=== PATIENT | female | born 1960 | race Caucasian/White ===

== ENCOUNTER 2020-05-08 14:21 | Inpatient (IN) | payer OTHER ==
--- NOTE | 2020-05-08 15:02 | CR ---
EXAMINATION: Pelvis 1V SEX: Female AGE: 59 years CLINICAL HISTORY: 59-year-old female (nonweight bearing) injured in fall off horse. INTERPRETATION: Rotated AP pelvic film unremarkable. 1. Symmetric spacing normal-appearing hip joints. No dislocation. 2. Homogeneously bone mineral density for age and gender. 3. No fractures of mid/lower pelvis or proximal femurs. 4. No foreign bodies.
[2020-05-08] MEDS ORDERED: Ondansetron 4 MG/2 ML SDV IVPUSH ONE (15:30)
[2020-05-08] MEDS ORDERED: Morphine 2 MG/ML SYRINGE IVPUSH ONE ×2 (15:30→17:45)
--- NOTE | 2020-05-08 15:37 | EDM.PDOC ---
ED HPI GENERAL MEDICAL PROBLEM - General Chief Complaint: Lower Extremity Injury/Pain Stated Complaint: unknown Time Seen by Provider: 05/08/20 15:20 Source of Information: Reports: Patient History Limitations: Reports: No Limitations - History of Present Illness INITIAL COMMENTS - FREE TEXT/NARRATIVE: This 59 yo female patient reports to the ED due to a fall from a horse. The patient reports pain in her left hip and lower back. The patient has not been able to move her left leg since time of injury without increased pain. The patient reports she has gotten nauseated in the past with pain medication. Onset: Today Duration: Minutes: Location: Reports: Back, Pelvis, Lower Extremity, Left Quality: Reports: Ache Severity: Moderate Improves with: Reports: None Worsens with: Reports: None Context: Reports: Trauma Associated Symptoms: Reports: No Other Symptoms left hip Pain Score (Numeric/FACES): 10 - Related Data Allergies Allergy/AdvReac Type Severity Reaction Status Date / Time No Known Allergies Allergy Verified 05/08/20 15:12 Home Meds: Home Meds . 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 ED EXAM, GENERAL - Physical Exam Exam: See Below Exam Limited By: No Limitations General Appearance: Alert, WD/WN, Moderate Distress Eye Exam: Bilateral Eye: EOMI, Normal Inspection, PERRL Ears: Normal External Exam, Normal Canal, Hearing Grossly Normal, Normal TMs Nose: Normal Inspection, Normal Mucosa, No Blood Throat/Mouth: Normal Inspection, Normal Lips, Normal Teeth, Normal Gums, Normal Oropharynx, Normal Voice, No Airway Compromise Head: Atraumatic, Normocephalic Neck: Normal Inspection, Supple, Non-Tender, Full Range of Motion Respiratory/Chest: No Respiratory Distress, Lungs Clear, Normal Breath Sounds, No Accessory Muscle Use, Chest Non-Tender Cardiovascular: Normal Peripheral Pulses, Regular Rate, Rhythm, No Edema, No Gallop, No JVD, No Murmur, No Rub GI/Abdominal: Normal Bowel Sounds, Soft, Non-Tender, No Organomegaly, No Distention, No Abnormal Bruit, No Mass (Female) Exam: Deferred Rectal (Female) Exam: Deferred Back Exam: Paraspinal Tenderness (low back/sacral ), Vertebral Tenderness (low back and sacral ) Extremities: Leg Pain Neurological: Alert, Oriented, CN II-XII Intact, Normal Cognition, Normal Gait, Normal Reflexes, No Motor/Sensory Deficits Psychiatric: Normal Affect, Normal Mood Skin Exam: Warm, Dry, Intact, Normal Color, No Rash Lymphatic: No Adenopathy Course - Vital Signs Last Recorded V/S: Last Vital Signs Temp 37.1 C 05/08/20 14:31 Pulse 88 05/08/20 14:31 Resp 20 05/08/20 14:31 BP 140/79 05/08/20 14:31 Pulse Ox 98 05/08/20 14:31 - Orders/Labs/Meds Orders: Active Orders 24 hr Category Date Time Status Admission Diagnosis [ADT] Stat ADT 05/08/20 16:57 Ordered Admission Status [Patient Status] [ADT] Routine ADT 05/08/20 16:57 Ordered Meds: Medications Discontinued Medications Generic Name Dose Route Start Last Admin Trade Name Freq PRN Reason Stop Dose Admin Morphine Sulfate 2 mg 05/08/20 15:30 05/08/20 15:42 Morphine IVPUSH 05/08/20 15:31 2 mg ONETIME ONE Administration Ondansetron HCl 4 mg 05/08/20 15:30 05/08/20 15:42 Zofran IVPUSH 05/08/20 15:31 4 mg ONETIME ONE Administration - Re-Assessments/Exams Free Text/Narrative Re-Assessment/Exam: 05/08/20 16:[address] Mata (Orthopedics with [facility] in [place]) resulted in recommendation for the patient to be toe touch weigh bearing for 6 weeks. The patient can either follow-up with ortho in [place] or visit one of the orthopedic specialists that comes to [place]. Departure - Departure Time of Disposition: 17:01 Disposition: Refer to Observation Condition: Fair Clinical Impression: Sacral fracture, closed Qualifiers: Encounter type: initial encounter Zone of sacrum fracture: unspecified portion of sacrum Qualified Code(s): S32.10XA - Unspecified fracture of sacrum, initial encounter for closed fracture - Discharge Information *PRESCRIPTION DRUG MONITORING PROGRAM REVIEWED*: Not Applicable *COPY OF PRESCRIPTION DRUG MONITORING REPORT IN PATIENT BERNABE: Not Applicable Care Plan Goals: Discussed the patient's history, examination, CT results and consult recommendations from Dr. Mata ([facility]) with Dr. Moya. Dr. Moya accepted the patient for continued evaluation and management as an observation patient at [facility] in [place]. Sepsis Event Note (ED) - Evaluation Sepsis Screening Result: No Definite Risk - Focused Exam Vital Signs: Vital Signs Temp Pulse Resp BP Pulse Ox 05/08/20 14:31 37.1 C 88 20 140/79 98 - My Orders Last 24 Hours: My Active Orders 05/08/20 16:57 Admission Diagnosis [ADT] Stat Admission Status [Patient Status] [ADT] Routine - Assessment/Plan Last 24 Hours: My Active Orders 05/08/20 16:57 Admission Diagnosis [ADT] Stat Admission Status [Patient Status] [ADT] Routine
--- NOTE | 2020-05-08 16:21 | CT ---
PROCEDURE INFORMATION: Exam: CT Lumbar Spine Without Contrast Exam date and time: 05/08/2020 3:54 PM Age: 59 years old Clinical indication: Injury or trauma; Fall; Blunt trauma (contusions or hematomas); Injury date: 05/08/20; Injury details: Fell trying to get on a horse; Additional info: Low back/sacral pain TECHNIQUE: Imaging protocol: Computed tomography images of the lumbar spine without contrast. Radiation optimization: All CT scans at this facility use at least one of these dose optimization techniques: automated exposure control; mA and/or kV adjustment per patient size (includes targeted exams where dose is matched to clinical indication); or iterative reconstruction. COMPARISON: No relevant prior studies available. FINDINGS: Vertebrae: Comminuted nondisplaced fracture of the left sacral wing. Normal alignment. L1-L2: No significant disc protrusion. No severe spinal canal stenosis. No significant neural foraminal narrowing. L2-L3: No significant disc protrusion. No spinal canal stenosis. No neural foraminal narrowing. L3-L4: No significant disc protrusion. No severe spinal canal stenosis. No significant neural foraminal narrowing. L4-L5: No significant disc protrusion. No severe spinal canal stenosis. No significant neural foraminal narrowing. L5-S1: No significant disc protrusion. No severe spinal canal stenosis. No significant neural foraminal narrowing. Soft tissues: Unremarkable. IMPRESSION: Nondisplaced comminuted fracture of the left sacral wing. No other bony injury. No soft tissue findings.
[2020-05-08] MEDS ORDERED: Acetaminophen 325 MG Tab PO PRN (18:10)
--- NOTE | 2020-05-08 18:19 | PCM.HP ---
H&P History of Present Illness - General Date of Service: 05/08/20 Admit Problem/Dx: Admission Diagnosis/Problem Admission Diagnosis/Problem Pain management Source of Information: Patient History Limitations: Reports: No Limitations - History of Present Illness Initial Comments - Free Text/Narative: Kate is a 59-year-old female with no significant past medical history who presented to the ED for evaluation of left hip and lower back pain following a fall. Per patient she was climbing onto a horse for a horse right when she fell off onto the hard concrete it floor. She denies any prodromal symptoms. She sustained severe pain to the left hip and lower back. She is unable to bear weight. Pain is sharp, 10/10, nonradiating, aggravated with movement and relieved with rest. She denies any other symptoms. She denies urinary or fecal incontinence. She has no fever or chills. No diarrhea. In the ED vitals were unremarkable. X-ray of the pelvis was unremarkable. CT pelvis revealed comminuted nondisplaced fracture of the left sacral wing. The ED provider orthopedic surgeon at [facility] was consulted and indicated patient is not a surgical candidate. He recommended pain management and PT/OT. Patient received IV analgesics in the ED. Admission was requested for further management. Onset of Symptoms: Reports: Today Duration of Symptoms: Reports: Hour(s): Location: Reports: Back, Pelvis Quality: Reports: Stabbing Severity: Severe Improves with: Reports: Rest Worsens with: Reports: Immobilization Associated Symptoms: Reports: No Other Symptoms left hip Pain Score (Numeric/FACES): 10 - Related Data Allergies/Adverse Reactions: Allergies Allergy/AdvReac Type Severity Reaction Status Date / Time No Known Allergies Allergy Verified 05/08/20 15:12 Home Medications: Home Meds . 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 General: Reports: No Symptoms HEENT: Reports: No Symptoms Pulmonary: Reports: No Symptoms Cardiovascular: Reports: No Symptoms Gastrointestinal: Reports: No Symptoms Genitourinary: Reports: No Symptoms Musculoskeletal: Reports: No Symptoms Skin: Reports: No Symptoms Psychiatric: Reports: No Symptoms Neurological: Reports: No Symptoms Hematologic/Lymphatic: Reports: No Symptoms Immunologic: Reports: No Symptoms Exam - Exam Exam: See Below - Vital Signs Vital Signs: Last Vital Signs Temp 98.7 F 05/08/20 14:31 Pulse 88 05/08/20 14:31 Resp 20 05/08/20 14:31 BP 140/79 05/08/20 14:31 Pulse Ox 98 05/08/20 14:31 Weight: 145 lb - Exam General: Alert, Oriented, 4 HEENT: PERRLA, Hearing Intact, Mucosa Moist & [place], Nares Patent, Normal Nasal Septum, Posterior Pharynx Clear, Conjunctiva Clear, EOMI, EACs Clear, TMs Clear Neck: Supple, Trachea Midline, 2 Lungs: Clear to Auscultation, Normal Respiratory Effort Cardiovascular: Regular Rate, Regular Rhythm GI/Abdominal Exam: Normal Bowel Sounds, Soft, Non-Tender, No Organomegaly, No Distention, No Abnormal Bruit, No Mass, Pelvis Stable (Female) Exam: Normal External Exam, Normal Speculum Exam, Normal Bimanual Exam Rectal (Female) Exam: Normal Exam, Normal Rectal Tone Back Exam: Normal Inspection, Full Range of Motion, NT Extremities: Normal Inspection, Normal Range of Motion, Non-Tender, No Pedal Edema, Normal Capillary Refill Skin: Warm, Dry, Intact Neurological: Cranial Nerves Intact, Reflexes Equal Bilateral Neuro Extensive - Mental Status: Alert, Oriented x3, Normal Mood/Affect, Normal Cognition Neuro Extensive - Motor, Sensory, Reflexes: CN II-XII Intact, Normal Gait, Normal Reflexes Psychiatric: Alert, Normal Affect, Normal Mood - Patient Data Result Diagrams: 05/08/20 18:30 05/08/20 18:30 - Problem List (1) Status post fall SNOMED Code(s): 341830705 ICD Code: Z91.81 - HISTORY OF FALLING Status: Acute Current Visit: Yes Problem List Initiated/Reviewed/Updated: Yes Orders Last 24hrs: Active Orders 24 hr Category Date Time Status Admission Diagnosis [ADT] Stat ADT 05/08/20 16:57 Ordered Admission Status [Patient Status] [ADT] Routine ADT 05/08/20 16:57 Active Ambulate [RC] ASDIRECTED Care 05/08/20 18:10 Ordered Notify Provider Vital Signs [RC] ASDIRECTED Care 05/08/20 18:11 Ordered Oxygen Therapy [RC] PRN Care 05/08/20 18:10 Ordered VTE/DVT Education [RC] PER UNIT ROUTINE Care 05/08/20 18:10 Ordered Vital Signs [RC] Q4H Care 05/08/20 18:10 Ordered PT Evaluation and Treatment [CONS] Routine Cons 05/08/20 18:10 Ordered Regular Diet [DIET] Diet 05/08/20 Dinner Ordered BASIC METABOLIC PANEL,BMP [CHEM] Routine Lab 05/08/20 18:10 Ordered CBC WITH AUTO DIFF [HEME] Routine Lab 05/08/20 18:10 Ordered CORONAVIRUS COVID-19 RAPID [MOLEC] Stat Lab 05/08/20 17:05 Received Acetaminophen [TylenoL] Med 05/08/20 18:10 Ordered 650 mg PO Q4H PRN Baclofen [Lioresal] Med 05/08/20 18:30 Ordered 10 mg PO TID Heparin Sodium Med 05/08/20 21:00 Ordered 5,000 units SUBCUT Q12HR Ondansetron [Zofran] Med 05/08/20 18:10 Ordered 4 mg IVPUSH Q6H PRN fentaNYL [Sublimaze] Med 05/08/20 18:14 Ordered 50 mcg IVPUSH Q2H PRN oxyCODONE Med 05/08/20 18:10 Ordered 10 mg PO Q6H PRN Resuscitation Status Routine Resus Stat 05/08/20 18:10 Ordered Assessment/Plan Comment:: #Severe left hip and lower back pain status post mechanical fall #Comminuted nondisplaced left sacral wing fracture following above Admit to medical floor Pain management with oxycodone 10 mg every 6 hours as needed IV fentanyl 50 mg every 2 hours for breakthrough pain Physical therapy and Occupational Therapy Fall precautions #Regular diet #Full code
[2020-05-08 18:54] LABS: ANION GAP 12.1 mEq/L (7-13); CHLORIDE,CL 100 mmol/L (98-107); SODIUM,NA 137 mmol/L (136-145)
[2020-05-08] MEDS: oxyCODONE 5 MG Tab PO PRN (18:54)
[2020-05-08] MEDS: Baclofen 10 MG Tab PO SCH ×2 (18:54→21:33)
[2020-05-08] MEDS: fentaNYL 100 MCG/2 ML SDV IVPUSH PRN ×2 (20:01→21:59)
[2020-05-08] MEDS: Ondansetron 4 MG/2 ML SDV IVPUSH PRN (20:02)
[2020-05-09] MEDS: oxyCODONE 5 MG Tab PO PRN ×2 (01:17→07:39)
[2020-05-09] MEDS: fentaNYL 100 MCG/2 ML SDV IVPUSH PRN ×4 (01:24→20:06)
[2020-05-09] MEDS: Ondansetron 4 MG/2 ML SDV IVPUSH PRN ×5 (01:51→20:06)
[2020-05-09] MEDS: Baclofen 10 MG Tab PO SCH ×3 (08:16→18:02)
[2020-05-09] MEDS: Heparin Sodium 5,000 Units/ML Vial SUBCUT SCH ×3 (08:16→21:12)
[2020-05-09] MEDS ORDERED: oxyCODONE 5 MG Tab PO PRN (10:24)
--- NOTE | 2020-05-09 10:29 | PCM.PN ---
- General Info Date of Service: 05/09/20 Admission Dx/Problem (Free Text): Admission Diagnosis/Problem Admission Diagnosis/Problem Pain management Subjective Update: Kate is a 59-year-old female with no significant past medical history who presented to the ED for evaluation of left hip and lower back pain following a mechanical fall. CT pelvis revealed comminuted nondisplaced fracture of the left sacral wing. Per ED provider orthopedic surgeon at [facility] was consulted and indicated patient is not a surgical candidate. He recommended pain management and PT/OT. Today patient was seen and examined. She still has significant but indicates it is improving with current pain regimen. She is still unable to ambulate because of pain. She noted nausea with fentanyl. She denies abdominal pain. She has no fever or chills. Functional Status: Reports: Other (Pain not well controlled) - Review of Systems General: Reports: No Symptoms HEENT: Reports: No Symptoms Pulmonary: Reports: No Symptoms Cardiovascular: Reports: No Symptoms Gastrointestinal: Reports: No Symptoms Genitourinary: Reports: No Symptoms Musculoskeletal: Reports: No Symptoms Skin: Reports: No Symptoms Neurological: Reports: No Symptoms Psychiatric: Reports: No Symptoms - Patient Data Vitals - Most Recent: Last Vital Signs Temp 98.7 F 05/09/20 08:25 Pulse 71 05/09/20 08:25 Resp 18 05/09/20 08:25 BP 115/69 05/09/20 08:25 Pulse Ox 93 L 05/09/20 08:25 Weight - Most Recent: 146 lb 6.4 oz I&O - Last 24 Hours: Intake & Output 05/08/20 05/09/20 05/09/20 22:59 06:59 14:59 Output Total 400 Balance -400 Lab Results Last 24 Hours: Laboratory Results - last 24 hr 05/08/20 05/08/20 05/08/20 Range/Units 17:05 18:30 18:30 WBC 8.7 (5.0-10.0) 10^3/uL RBC 4.00 L (4.2-5.4) 10^6/uL Hgb 12.3 (12.0-16.0) g/dL Hct 36.9 L (37.0-47.0) % MCV 92.3 (80-100) fL MCH 30.8 (27.0-34.0) pg MCHC 33.3 (33.0-35.0) g/dL Plt Count 224 (150-450) 10^3/uL Neut % (Auto) 84.5 H (42.2-75.2) % Lymph % (Auto) 10.8 L (20.5-50.1) % [place] % (Auto) 4.5 (2-8) % Eos % (Auto) 0.1 L (1.0-3.0) % Baso % (Auto) 0.1 (0.0-1.0) % Sodium 137 (136-145) mmol/L Potassium 4.1 (3.5-5.1) mmol/L Chloride 100 (98-107) mmol/L Carbon Dioxide 29 (21-32) mmol/L Anion Gap 12.1 (7-13) mEq/L BUN 23 H (7-18) mg/dL Creatinine 0.71 (0.55-1.02) mg/dL Est Cr Clr Drug Dosing 74.87 mL/min Estimated GFR (MDRD) > 60 Glucose 123 H (74-99) mg/dL Calcium 9.0 (8.5-10.1) mg/dL SARS CoV-2 RNA Rapid LYNNETTE Negative (NEGATIVE) Med Orders - Current: Current Medications Acetaminophen (Tylenol) 650 mg PO Q4H PRN PRN Reason: Pain (Mild 1-3)/fever Baclofen (Lioresal) 10 mg PO Q8H [facility] Heparin Sodium (Porcine) (Heparin Sodium) 5,000 units SUBCUT Q12HR [facility] Last Admin: 05/09/20 08:16 Dose: 5,000 units Documented by: Ondansetron HCl (Zofran) 4 mg IVPUSH Q4H PRN PRN Reason: Nausea/Vomiting Last Admin: 05/09/20 06:09 Dose: 4 mg Documented by: Oxycodone HCl (Oxycodone) 5 mg PO Q4H PRN PRN Reason: Pain (moderate 4-6) Discontinued Medications Baclofen (Lioresal) 10 mg PO TID [facility] Last Admin: 05/09/20 08:16 Dose: 10 mg Documented by: Fentanyl (Sublimaze) 50 mcg IVPUSH Q2H PRN PRN Reason: Pain (severe 7-10) Last Admin: 05/09/20 04:58 Dose: 50 mcg Documented by: Morphine Sulfate (Morphine) 2 mg IVPUSH ONETIME ONE Stop: 05/08/20 15:31 Last Admin: 05/08/20 15:42 Dose: 2 mg Documented by: Morphine Sulfate (Morphine) 2 mg IVPUSH ONETIME ONE Stop: 05/08/20 17:46 Last Admin: 05/08/20 17:51 Dose: 2 mg Documented by: Ondansetron HCl (Zofran) 4 mg IVPUSH ONETIME ONE Stop: 05/08/20 15:31 Last Admin: 05/08/20 15:42 Dose: 4 mg Documented by: Ondansetron HCl (Zofran) 4 mg IVPUSH Q6H PRN PRN Reason: Nausea/Vomiting Last Admin: 05/09/20 01:51 Dose: 4 mg Documented by: Oxycodone HCl (Oxycodone) 10 mg PO Q6H PRN PRN Reason: Pain (moderate 4-6) Last Admin: 05/09/20 07:39 Dose: 10 mg Documented by: - Exam Quality Assessment: DVT Prophylaxis General: Alert, Oriented HEENT: Pupils Equal, Pupils Reactive, EOMI, Mucous Membr. Moist/[place] Neck: Supple Lungs: Clear to Auscultation, Normal Respiratory Effort Cardiovascular: Regular Rate, Regular Rhythm GI/Abdominal Exam: Normal Bowel Sounds, Soft, Non-Tender, No Organomegaly, No Distention, No Abnormal Bruit, No Mass, Pelvis Stable (Female) Exam: Normal External Exam, Normal Speculum Exam, Normal Bimanual Exam Back Exam: Normal Inspection, Full Range of Motion Extremities: Normal Inspection, Normal Range of Motion, Non-Tender, No Pedal Edema, Normal Capillary Refill Skin: Warm, Dry, Intact Wound/Incisions: Healing Well Neurological: No New Focal Deficit Psy/Mental Status: Alert, Normal Affect, Normal Mood Sepsis Event Note - Evaluation Sepsis Screening Result: No Definite Risk - Focused Exam Vital Signs: Vital Signs Temp Pulse Resp BP Pulse Ox 05/09/20 08:25 98.7 F 71 18 115/69 93 L 05/09/20 05:00 98.9 F 78 16 108/65 96 05/09/20 00:00 99.4 F 75 16 101/58 L - Problem List & Annotations (1) Status post fall SNOMED Code(s): 908716552 Code(s): Z91.81 - HISTORY OF FALLING Status: Acute Current Visit: Yes - Problem List Review Problem List Initiated/Reviewed/Updated: Yes - My Orders Last 24 Hours: My Active Orders 05/08/20 Dinner Regular Diet [DIET] 05/08/20 18:10 Ambulate [RC] ASDIRECTED Oxygen Therapy [RC] .PRN VTE/DVT Education [RC] PER UNIT ROUTINE Vital Signs [RC] Q4H PT Evaluation and Treatment [CONS] Routine Acetaminophen [TylenoL] 650 mg PO Q4H PRN Resuscitation Status Routine 05/08/20 18:11 Notify Provider Vital Signs [RC] ASDIRECTED 05/08/20 18:29 Communication Order [RC] ROUTINE 05/08/20 21:00 Heparin Sodium 5,000 units SUBCUT Q12HR 05/09/20 02:05 Ondansetron [Zofran] 4 mg IVPUSH Q4H PRN 05/09/20 10:24 oxyCODONE 5 mg PO Q4H PRN 05/09/20 10:30 Baclofen [Lioresal] 10 mg PO Q8H - Plan Plan:: #Severe left hip and lower back pain status post mechanical fall #Comminuted nondisplaced left sacral wing fracture following above Pain gradually improving Oxycodone 5 mg every 4 hours as needed Baclofen 10 mg q8h Physical therapy and Occupational Therapy Fall precautions #Regular diet #Full code
[2020-05-09] MEDS ORDERED: Magnesium Hydroxide 400 MG/5 ML Susp 30 ML Cup PO PRN (10:54)
[2020-05-09] MEDS: Metoclopramide 10 MG/2 ML SDV IVPUSH PRN (20:06)
[2020-05-10] MEDS: fentaNYL 100 MCG/2 ML SDV IVPUSH PRN ×2 (00:50→05:09)
[2020-05-10] MEDS: Ondansetron 4 MG/2 ML SDV IVPUSH PRN ×4 (00:51→18:01)
[2020-05-10] MEDS: Metoclopramide 10 MG/2 ML SDV IVPUSH PRN ×2 (04:51→21:17)
[2020-05-10] MEDS: Baclofen 10 MG Tab PO SCH ×3 (05:25→18:01)
[2020-05-10] MEDS: Heparin Sodium 5,000 Units/ML Vial SUBCUT SCH ×2 (08:59→21:19)
--- NOTE | 2020-05-10 09:40 | PCM.PN ---
- General Info Date of Service: 05/10/20 Admission Dx/Problem (Free Text): Admission Diagnosis/Problem Admission Diagnosis/Problem Pain management Subjective Update: Kate is a 59-year-old female with no significant past medical history who presented to the ED for evaluation of left hip and lower back pain following a mechanical fall. CT pelvis revealed comminuted nondisplaced fracture of the left sacral wing. Per ED provider orthopedic surgeon at [facility] was consulted and indicated patient is not a surgical candidate. He recommended pain management and PT/OT. Today patient was seen and examined. She still continues to have significant pain to the left hip. Unable to move. Still has nausea due to medication side effect. Patient reported having nausea with fentanyl and oxycodone. This is improved with Reglan added to Zofran. She denies any other symptoms. Functional Status: Reports: Pain Controlled - Review of Systems General: Reports: No Symptoms HEENT: Reports: No Symptoms Pulmonary: Reports: No Symptoms Cardiovascular: Reports: No Symptoms Gastrointestinal: Reports: No Symptoms Genitourinary: Reports: No Symptoms Musculoskeletal: Reports: No Symptoms Skin: Reports: No Symptoms Neurological: Reports: No Symptoms Psychiatric: Reports: No Symptoms - Patient Data Vitals - Most Recent: Last Vital Signs Temp 98.8 F 05/10/20 08:59 Pulse 82 05/10/20 08:59 Resp 18 05/10/20 08:59 BP 147/83 H 05/10/20 08:59 Pulse Ox 92 L 05/10/20 08:59 Weight - Most Recent: 146 lb 6.4 oz I&O - Last 24 Hours: Intake & Output 05/09/20 05/10/20 05/10/20 22:59 06:59 14:59 Output Total 500 Balance -500 Med Orders - Current: Current Medications Acetaminophen (Tylenol) 650 mg PO Q4H PRN PRN Reason: Pain (Mild 1-3)/fever Last Admin: 05/09/20 13:51 Dose: 650 mg Documented by: Baclofen (Lioresal) 10 mg PO Q8H [facility] Last Admin: 05/10/20 05:25 Dose: Not Given Documented by: Heparin Sodium (Porcine) (Heparin Sodium) 5,000 units SUBCUT Q12HR [facility] Last Admin: 05/10/20 08:59 Dose: 5,000 units Documented by: Sodium Chloride (Normal Saline) 1,000 mls @ 75 mls/hr IV ASDIRECTED [facility] Lidocaine (Lidoderm 5%) 700 mg TOP Q24H [facility] Magnesium Hydroxide (Milk Of Magnesia) 30 ml PO Q6H PRN PRN Reason: Constipation Metoclopramide HCl (Reglan) 10 mg IVPUSH Q8H PRN PRN Reason: Nausea Last Admin: 05/10/20 04:51 Dose: 10 mg Documented by: Morphine Sulfate (Ms Contin) 15 mg PO Q12HR [facility] Morphine Sulfate (Morphine) 1 mg IVPUSH Q4H PRN PRN Reason: Pain (severe 7-10) Ondansetron HCl (Zofran) 4 mg IVPUSH Q4H PRN PRN Reason: Nausea/Vomiting Last Admin: 05/10/20 08:59 Dose: 4 mg Documented by: Senna/Docusate Sodium (Senna Plus) 2 tab PO BEDTIME PRN PRN Reason: Constipation Discontinued Medications Baclofen (Lioresal) 10 mg PO TID [facility] Last Admin: 05/09/20 08:16 Dose: 10 mg Documented by: Fentanyl (Sublimaze) 50 mcg IVPUSH Q2H PRN PRN Reason: Pain (severe 7-10) Last Admin: 05/09/20 04:58 Dose: 50 mcg Documented by: Fentanyl (Sublimaze) 25 mcg IVPUSH Q4H PRN PRN Reason: Pain (severe 7-10) Last Admin: 05/10/20 05:09 Dose: 25 mcg Documented by: Morphine Sulfate (Morphine) 2 mg IVPUSH ONETIME ONE Stop: 05/08/20 15:31 Last Admin: 05/08/20 15:42 Dose: 2 mg Documented by: Morphine Sulfate (Morphine) 2 mg IVPUSH ONETIME ONE Stop: 05/08/20 17:46 Last Admin: 05/08/20 17:51 Dose: 2 mg Documented by: Ondansetron HCl (Zofran) 4 mg IVPUSH ONETIME ONE Stop: 05/08/20 15:31 Last Admin: 05/08/20 15:42 Dose: 4 mg Documented by: Ondansetron HCl (Zofran) 4 mg IVPUSH Q6H PRN PRN Reason: Nausea/Vomiting Last Admin: 05/09/20 01:51 Dose: 4 mg Documented by: Oxycodone HCl (Oxycodone) 10 mg PO Q6H PRN PRN Reason: Pain (moderate 4-6) Last Admin: 05/09/20 07:39 Dose: 10 mg Documented by: Oxycodone HCl (Oxycodone) 5 mg PO Q4H PRN PRN Reason: Pain (moderate 4-6) Last Admin: 05/09/20 13:52 Dose: 5 mg Documented by: - Exam Quality Assessment: DVT Prophylaxis General: Alert, Oriented HEENT: Pupils Equal, Pupils Reactive, EOMI, Mucous Membr. Moist/[place] Neck: Supple Lungs: Clear to Auscultation, Normal Respiratory Effort Cardiovascular: Regular Rate, Regular Rhythm GI/Abdominal Exam: Normal Bowel Sounds, Soft, Non-Tender, No Organomegaly, No Distention, No Abnormal Bruit, No Mass, Pelvis Stable (Female) Exam: Normal External Exam, Normal Speculum Exam, Normal Bimanual Exam Back Exam: Normal Inspection, Full Range of Motion Extremities: Normal Inspection, Normal Range of Motion, Non-Tender, No Pedal Edema, Normal Capillary Refill Skin: Warm, Dry, Intact Wound/Incisions: Healing Well Neurological: No New Focal Deficit Psy/Mental Status: Alert, Normal Affect, Normal Mood Sepsis Event Note - Evaluation Sepsis Screening Result: No Definite Risk - Focused Exam Vital Signs: Vital Signs Temp Pulse Resp BP Pulse Ox 05/10/20 08:59 98.8 F 82 18 147/83 H 92 L 05/10/20 05:31 99.3 F 79 18 144/93 H 94 L 05/10/20 00:00 98 F 79 18 138/80 95 - Problem List & Annotations (1) Status post fall SNOMED Code(s): 177689705 Code(s): Z91.81 - HISTORY OF FALLING Status: Acute Current Visit: Yes - Problem List Review Problem List Initiated/Reviewed/Updated: Yes - My Orders Last 24 Hours: My Active Orders 05/09/20 10:30 Baclofen [Lioresal] 10 mg PO Q8H 05/09/20 10:52 Docusate Sodium/Sennosides [Senna Plus] 2 tab PO BEDTIME PRN 05/09/20 10:54 Magnesium Hydroxide [Milk of Magnesia] 30 ml PO Q6H PRN 05/09/20 12:27 K Pad [Heat Therapy] [OM.PC] Routine 05/09/20 18:17 Metoclopramide [Reglan] 10 mg IVPUSH Q8H PRN 05/09/20 22:00 RT Incentive Spirometry [RC] Q1HWA 05/10/20 09:33 BASIC METABOLIC PANEL,BMP [CHEM] Routine MAGNESIUM [CHEM] Routine PHOSPHORUS [CHEM] Routine 05/10/20 09:35 Morphine 1 mg IVPUSH Q4H PRN 05/10/20 09:40 Morphine [MS Contin] 15 mg PO Q12HR 05/10/20 09:45 Lidocaine 5% [Lidoderm 5%] 700 mg TOP Q24H Sodium Chloride 0.9% [Normal Saline] 1,000 ml IV ASDIRECTED - Plan Plan:: #Severe left hip and lower back pain status post mechanical fall #Comminuted nondisplaced left sacral wing fracture following above Start patient on MS Contin 15 mg every 12 hours IV morphine every 4 hourly as needed for breakthrough pain Continue physical therapy and Occupational Therapy Fall precautions #Regular diet #Full code
[2020-05-10] MEDS: Sodium Chloride 0.9% 1,000 ML IV SCH ×2 (09:57→22:18)
[2020-05-10] MEDS: Morphine 15 MG Tab.ER PO SCH ×2 (09:58→21:19)
[2020-05-10] MEDS: Lidocaine 5% 700 MG Patch TOP SCH (09:59)
[2020-05-10 10:51] LABS: ANION GAP 13.8 mEq/L (7-13); CHLORIDE,CL 100 mmol/L (98-107); SODIUM,NA 136 mmol/L (136-145)
[2020-05-10] MEDS: Morphine 2 MG/ML SYRINGE IVPUSH PRN ×2 (14:11→19:38)
[2020-05-10] MEDS: REMOVE LIDOCAINE TRDERM SCH (21:21)
[2020-05-11] MEDS: Morphine 2 MG/ML SYRINGE IVPUSH PRN ×2 (01:56→07:26)
[2020-05-11] MEDS: Ondansetron 4 MG/2 ML SDV IVPUSH PRN ×2 (01:56→07:26)
[2020-05-11] MEDS: Baclofen 10 MG Tab PO SCH ×3 (02:20→18:29)
[2020-05-11] MEDS: Heparin Sodium 5,000 Units/ML Vial SUBCUT SCH ×2 (09:47→22:36)
[2020-05-11] MEDS: Morphine 15 MG Tab.ER PO SCH ×2 (09:47→21:37)
[2020-05-11] MEDS: Lidocaine 5% 700 MG Patch TOP SCH (09:48)
--- NOTE | 2020-05-11 10:58 | PCM.PN ---
- General Info Date of Service: 05/11/20 Admission Dx/Problem (Free Text): Admission Diagnosis/Problem Admission Diagnosis/Problem Pain management Subjective Update: Kate is a 59-year-old female with no significant past medical history who presented to the ED for evaluation of left hip and lower back pain following a mechanical fall. CT pelvis revealed comminuted nondisplaced fracture of the left sacral wing. Per ED provider orthopedic surgeon at [facility] was consulted and indicated patient is not a surgical candidate. He recommended pain management and PT/OT. Today patient was seen and examined. Left hip pain is improving on current pain medication. Nausea vomiting has also improved. Patient was able to stand up this morning with minimal movement. She is pending PT OT evaluation. Functional Status: Reports: Pain Controlled - Review of Systems General: Reports: No Symptoms HEENT: Reports: No Symptoms Pulmonary: Reports: No Symptoms Cardiovascular: Reports: No Symptoms Gastrointestinal: Reports: No Symptoms Genitourinary: Reports: No Symptoms Musculoskeletal: Reports: No Symptoms Skin: Reports: No Symptoms Neurological: Reports: No Symptoms Psychiatric: Reports: No Symptoms - Patient Data Vitals - Most Recent: Last Vital Signs Temp 98.6 F 05/11/20 07:26 Pulse 70 05/11/20 07:26 Resp 18 05/11/20 07:26 BP 118/73 05/11/20 07:26 Pulse Ox 94 L 05/11/20 07:26 Weight - Most Recent: 146 lb 6.4 oz I&O - Last 24 Hours: Intake & Output 05/10/20 05/11/20 05/11/20 22:59 06:59 14:59 Intake Total 160 1200 Output Total 700 Balance 160 500 Med Orders - Current: Current Medications Acetaminophen (Tylenol) 650 mg PO Q4H PRN PRN Reason: Pain (Mild 1-3)/fever Last Admin: 05/09/20 13:51 Dose: 650 mg Documented by: Baclofen (Lioresal) 10 mg PO Q8H [facility] Last Admin: 05/11/20 09:47 Dose: 10 mg Documented by: Heparin Sodium (Porcine) (Heparin Sodium) 5,000 units SUBCUT Q12HR [facility] Last Admin: 05/11/20 09:47 Dose: 5,000 units Documented by: Sodium Chloride (Normal Saline) 1,000 mls @ 75 mls/hr IV ASDIRECTED [facility] Last Admin: 05/10/20 22:18 Dose: 75 mls/hr Documented by: Lidocaine (Lidoderm 5%) 700 mg TOP Q24H [facility] Last Admin: 05/11/20 09:48 Dose: 700 mg Documented by: Magnesium Hydroxide (Milk Of Magnesia) 30 ml PO Q6H PRN PRN Reason: Constipation Metoclopramide HCl (Reglan) 10 mg IVPUSH Q8H PRN PRN Reason: Nausea Last Admin: 05/10/20 21:17 Dose: 10 mg Documented by: Miscellaneous Information (Remove Patch) 1 ea TRDERM Q24H [facility] Last Admin: 05/10/20 21:21 Dose: Not Given Documented by: Morphine Sulfate (Ms Contin) 15 mg PO Q12HR [facility] Last Admin: 05/11/20 09:47 Dose: 15 mg Documented by: Morphine Sulfate (Morphine) 1 mg IVPUSH Q4H PRN PRN Reason: Pain (severe 7-10) Last Admin: 05/11/20 07:26 Dose: 1 mg Documented by: Ondansetron HCl (Zofran) 4 mg IVPUSH Q4H PRN PRN Reason: Nausea/Vomiting Last Admin: 05/11/20 07:26 Dose: 4 mg Documented by: Senna/Docusate Sodium (Senna Plus) 2 tab PO BEDTIME PRN PRN Reason: Constipation Discontinued Medications Baclofen (Lioresal) 10 mg PO TID [facility] Last Admin: 05/09/20 08:16 Dose: 10 mg Documented by: Fentanyl (Sublimaze) 50 mcg IVPUSH Q2H PRN PRN Reason: Pain (severe 7-10) Last Admin: 05/09/20 04:58 Dose: 50 mcg Documented by: Fentanyl (Sublimaze) 25 mcg IVPUSH Q4H PRN PRN Reason: Pain (severe 7-10) Last Admin: 05/10/20 05:09 Dose: 25 mcg Documented by: Morphine Sulfate (Morphine) 2 mg IVPUSH ONETIME ONE Stop: 05/08/20 15:31 Last Admin: 05/08/20 15:42 Dose: 2 mg Documented by: Morphine Sulfate (Morphine) 2 mg IVPUSH ONETIME ONE Stop: 05/08/20 17:46 Last Admin: 05/08/20 17:51 Dose: 2 mg Documented by: Ondansetron HCl (Zofran) 4 mg IVPUSH ONETIME ONE Stop: 05/08/20 15:31 Last Admin: 05/08/20 15:42 Dose: 4 mg Documented by: Ondansetron HCl (Zofran) 4 mg IVPUSH Q6H PRN PRN Reason: Nausea/Vomiting Last Admin: 05/09/20 01:51 Dose: 4 mg Documented by: Oxycodone HCl (Oxycodone) 10 mg PO Q6H PRN PRN Reason: Pain (moderate 4-6) Last Admin: 05/09/20 07:39 Dose: 10 mg Documented by: Oxycodone HCl (Oxycodone) 5 mg PO Q4H PRN PRN Reason: Pain (moderate 4-6) Last Admin: 05/09/20 13:52 Dose: 5 mg Documented by: - Exam Quality Assessment: DVT Prophylaxis General: Alert, Oriented HEENT: Pupils Equal, Pupils Reactive, EOMI, Mucous Membr. Moist/[place] Neck: Supple Lungs: Clear to Auscultation, Normal Respiratory Effort Cardiovascular: Regular Rate, Regular Rhythm GI/Abdominal Exam: Normal Bowel Sounds, Soft, Non-Tender, No Organomegaly, No Distention, No Abnormal Bruit, No Mass, Pelvis Stable (Female) Exam: Normal External Exam, Normal Speculum Exam, Normal Bimanual Exam Back Exam: Normal Inspection, Full Range of Motion Extremities: Normal Inspection, Normal Range of Motion, Non-Tender, No Pedal Edema, Normal Capillary Refill Skin: Warm, Dry, Intact Wound/Incisions: Healing Well Neurological: No New Focal Deficit Psy/Mental Status: Alert, Normal Affect, Normal Mood Sepsis Event Note - Evaluation Sepsis Screening Result: No Definite Risk - Focused Exam Vital Signs: Vital Signs Temp Pulse Resp BP Pulse Ox 05/11/20 07:26 98.6 F 70 18 118/73 94 L 05/11/20 02:30 97.8 F 76 18 126/69 97 - Problem List & Annotations (1) Status post fall SNOMED Code(s): 370486590 Code(s): Z91.81 - HISTORY OF FALLING Status: Acute Current Visit: Yes - Problem List Review Problem List Initiated/Reviewed/Updated: Yes - My Orders Last 24 Hours: My Active Orders 05/10/20 10:00 Lidocaine 5% [Lidoderm 5%] 700 mg TOP Q24H 05/10/20 22:00 Remove Patch 1 ea TRDERM Q24H 05/11/20 08:53 Antiembolic Devices [RC] 09,21 Antiembolic Hose [OM.PC] Routine - Plan Plan:: #Severe left hip and lower back pain status post mechanical fall #Comminuted nondisplaced left sacral wing fracture following above MS Contin 15 mg every 12 hours Oxycodone 5 mg every 4 hourly as needed for breakthrough pain Continue physical therapy and Occupational Therapy Fall precautions #Regular diet #Full code
[2020-05-11] MEDS: Morphine 15 MG Tab PO PRN ×2 (12:45→18:29)
[2020-05-11] MEDS: REMOVE LIDOCAINE TRDERM SCH (22:31)
[2020-05-12] MEDS: Morphine 15 MG Tab PO PRN ×2 (02:10→13:05)
[2020-05-12] MEDS: Baclofen 10 MG Tab PO SCH ×3 (02:10→18:01)
[2020-05-12] MEDS: Heparin Sodium 5,000 Units/ML Vial SUBCUT SCH ×3 (08:13→21:25)
[2020-05-12] MEDS: Morphine 15 MG Tab.ER PO SCH ×2 (08:14→21:24)
--- NOTE | 2020-05-12 09:32 | PCM.PN ---
- General Info Date of Service: 05/12/20 Admission Dx/Problem (Free Text): Admission Diagnosis/Problem Admission Diagnosis/Problem Pain management Subjective Update: Kate is a 59-year-old female with no significant past medical history who presented to the ED for evaluation of left hip and lower back pain following a mechanical fall. CT pelvis revealed comminuted nondisplaced fracture of the left sacral wing. Per ED provider orthopedic surgeon at [facility] was consulted and indicated patient is not a surgical candidate. He recommended pain management and PT/OT. Today patient was seen and examined. Left hip pain is improving on current pain medication. Patient was able to ambulate to the bathroom. Nausea has also improved. Functional Status: Reports: Pain Controlled - Review of Systems General: Reports: No Symptoms HEENT: Reports: No Symptoms Pulmonary: Reports: No Symptoms Cardiovascular: Reports: No Symptoms Gastrointestinal: Reports: No Symptoms Genitourinary: Reports: No Symptoms Musculoskeletal: Reports: No Symptoms Skin: Reports: No Symptoms Neurological: Reports: No Symptoms Psychiatric: Reports: No Symptoms - Patient Data Vitals - Most Recent: Last Vital Signs Temp 98.7 F 05/12/20 08:28 Pulse 73 05/12/20 08:28 Resp 20 05/12/20 08:28 BP 117/76 05/12/20 08:28 Pulse Ox 94 L 05/12/20 08:28 Weight - Most Recent: 146 lb 6.4 oz I&O - Last 24 Hours: Intake & Output 05/11/20 05/12/20 05/12/20 22:59 06:59 14:59 Intake Total 120 Output Total 450 400 Balance -330 -400 Med Orders - Current: Current Medications Acetaminophen (Tylenol) 650 mg PO Q4H PRN PRN Reason: Pain (Mild 1-3)/fever Last Admin: 05/09/20 13:51 Dose: 650 mg Documented by: Baclofen (Lioresal) 10 mg PO Q8H [facility] Last Admin: 05/12/20 02:10 Dose: 10 mg Documented by: Heparin Sodium (Porcine) (Heparin Sodium) 5,000 units SUBCUT Q12HR [facility] Last Admin: 05/12/20 08:13 Dose: 5,000 units Documented by: Lidocaine (Lidoderm 5%) 700 mg TOP Q24H [facility] Last Admin: 05/11/20 09:48 Dose: 700 mg Documented by: Magnesium Hydroxide (Milk Of Magnesia) 30 ml PO Q6H PRN PRN Reason: Constipation Last Admin: 05/12/20 08:13 Dose: 30 ml Documented by: Metoclopramide HCl (Reglan) 10 mg IVPUSH Q8H PRN PRN Reason: Nausea Last Admin: 05/10/20 21:17 Dose: 10 mg Documented by: Miscellaneous Information (Remove Patch) 1 ea TRDERM Q24H [facility] Last Admin: 05/11/20 22:31 Dose: Not Given Documented by: Morphine Sulfate (Ms Contin) 15 mg PO Q12HR [facility] Last Admin: 05/12/20 08:14 Dose: 15 mg Documented by: Morphine Sulfate (Morphine) 15 mg PO Q6H PRN PRN Reason: Pain (severe 7-10) Last Admin: 05/12/20 02:10 Dose: 15 mg Documented by: Ondansetron HCl (Zofran) 4 mg IVPUSH Q4H PRN PRN Reason: Nausea/Vomiting Last Admin: 05/11/20 07:26 Dose: 4 mg Documented by: Senna/Docusate Sodium (Senna Plus) 2 tab PO BEDTIME PRN PRN Reason: Constipation Last Admin: 05/11/20 21:38 Dose: 2 tab Documented by: Discontinued Medications Baclofen (Lioresal) 10 mg PO TID [facility] Last Admin: 05/09/20 08:16 Dose: 10 mg Documented by: Fentanyl (Sublimaze) 50 mcg IVPUSH Q2H PRN PRN Reason: Pain (severe 7-10) Last Admin: 05/09/20 04:58 Dose: 50 mcg Documented by: Fentanyl (Sublimaze) 25 mcg IVPUSH Q4H PRN PRN Reason: Pain (severe 7-10) Last Admin: 05/10/20 05:09 Dose: 25 mcg Documented by: Sodium Chloride (Normal Saline) 1,000 mls @ 75 mls/hr IV ASDIRECTED [facility] Last Infusion: 05/11/20 11:43 Dose: Infused Documented by: Morphine Sulfate (Morphine) 2 mg IVPUSH ONETIME ONE Stop: 05/08/20 15:31 Last Admin: 05/08/20 15:42 Dose: 2 mg Documented by: Morphine Sulfate (Morphine) 2 mg IVPUSH ONETIME ONE Stop: 05/08/20 17:46 Last Admin: 05/08/20 17:51 Dose: 2 mg Documented by: Morphine Sulfate (Morphine) 1 mg IVPUSH Q4H PRN PRN Reason: Pain (severe 7-10) Last Admin: 05/11/20 07:26 Dose: 1 mg Documented by: Ondansetron HCl (Zofran) 4 mg IVPUSH ONETIME ONE Stop: 05/08/20 15:31 Last Admin: 05/08/20 15:42 Dose: 4 mg Documented by: Ondansetron HCl (Zofran) 4 mg IVPUSH Q6H PRN PRN Reason: Nausea/Vomiting Last Admin: 05/09/20 01:51 Dose: 4 mg Documented by: Oxycodone HCl (Oxycodone) 10 mg PO Q6H PRN PRN Reason: Pain (moderate 4-6) Last Admin: 05/09/20 07:39 Dose: 10 mg Documented by: Oxycodone HCl (Oxycodone) 5 mg PO Q4H PRN PRN Reason: Pain (moderate 4-6) Last Admin: 05/09/20 13:52 Dose: 5 mg Documented by: - Exam Quality Assessment: DVT Prophylaxis General: Alert, Oriented HEENT: Pupils Equal, Pupils Reactive, EOMI, Mucous Membr. Moist/[place] Neck: Supple Lungs: Clear to Auscultation, Normal Respiratory Effort Cardiovascular: Regular Rate, Regular Rhythm GI/Abdominal Exam: Normal Bowel Sounds, Soft, Non-Tender, No Organomegaly, No Distention, No Abnormal Bruit, No Mass, Pelvis Stable (Female) Exam: Normal External Exam, Normal Speculum Exam, Normal Bimanual Exam Back Exam: Normal Inspection, Full Range of Motion Extremities: Normal Inspection, Normal Range of Motion, Non-Tender, No Pedal Edema, Normal Capillary Refill Skin: Warm, Dry, Intact Wound/Incisions: Healing Well Neurological: No New Focal Deficit Psy/Mental Status: Alert, Normal Affect, Normal Mood Sepsis Event Note - Evaluation Sepsis Screening Result: No Definite Risk - Focused Exam Vital Signs: Vital Signs Temp Pulse Resp BP Pulse Ox 05/12/20 08:28 98.7 F 73 20 117/76 94 L 05/12/20 00:00 96.9 F 70 16 120/81 96 - Problem List & Annotations (1) Status post fall SNOMED Code(s): 082046060 Code(s): Z91.81 - HISTORY OF FALLING Status: Acute Current Visit: Yes - Problem List Review Problem List Initiated/Reviewed/Updated: Yes - My Orders Last 24 Hours: My Active Orders 05/11/20 08:53 Antiembolic Devices [RC] 09,21 Antiembolic Hose [OM.PC] Routine 05/11/20 10:58 OT Evaluation and Treatment [CONS] Routine 05/11/20 11:34 Patient Status [ADT] Routine 05/11/20 11:46 Morphine 15 mg PO Q6H PRN - Plan Plan:: #Severe left hip and lower back pain status post mechanical fall #Comminuted nondisplaced left sacral wing fracture following above Continue MS Contin 15 mg every 12 hours Oxycodone 5 mg every 4 hourly as needed for breakthrough pain Continue physical therapy and Occupational Therapy Fall precautions #Regular diet #Full code #Disposition. Possible discharge home tomorrow
[2020-05-12] MEDS ORDERED: Hydrocortisone 2.5% Crm 30 GM Tube TOP PRN (09:56)
[2020-05-12] MEDS ORDERED: Sodium Chloride 0.9% 10 ML Syringe FLUSH PRN (11:24)
[2020-05-12] MEDS: Lidocaine 5% 700 MG Patch TOP SCH (14:20)
[2020-05-13] MEDS: Morphine 15 MG Tab PO PRN ×2 (00:30→14:00)
[2020-05-13] MEDS: REMOVE LIDOCAINE TRDERM SCH (01:04)
[2020-05-13] MEDS: Baclofen 10 MG Tab PO SCH ×3 (04:45→18:09)
[2020-05-13] MEDS: Morphine 15 MG Tab.ER PO SCH (09:41)
[2020-05-13] MEDS: Lidocaine 5% 700 MG Patch TOP SCH (09:46)
[2020-05-13] MEDS: Heparin Sodium 5,000 Units/ML Vial SUBCUT SCH (09:48)
[2020-05-13] MEDS ORDERED: Ondansetron 4 MG Tab.DIS PO ONE (10:06)
[2020-05-13] MEDS ORDERED: Magnesium Hydroxide 400 MG/5 ML Susp 30 ML Cup PO PRN (12:00)
--- NOTE | 2020-05-13 12:12 | PN ---
DATE: 05/13/2020 SUBJECTIVE: The patient is a 59-year-old lady with no significant past medical history who was admitted because of comminuted nondisplaced fracture of the left sacral wing. She was admitted for pain management. The patient is doing slightly better, but she is still needing the pain medication and she has not had any bowel movement for the last couple of days. Otherwise, no chest pain, fever, chills, shortness of breath, nor any other complaints. OBJECTIVE: Vital Signs: Blood pressure is 118/76, pulse 72, respirations 16, temperature of 98.6, and saturations 98% on room air. Heart: Regular rate and rhythm. Normal S1 and S2. No gallops, no rubs. Lungs: Equal bilaterally. No crackles, no wheezing. Abdomen: Soft, nontender. Bowel sounds positive. Extremities: Negative for any significant pedal edema. No calf tenderness. PLAN: We will give her some milk of magnesia, so that she can have some bowel movement, then we will continue with her stool softener, and once the patient has bowel movement, then we will discharge the patient home. The patient is also going to be followed by home health care for OT. [facility] /[id number]
[2020-05-13] MEDS ORDERED: Benzocaine/Docusate Sodium 20-283 MG/5 ML Enema RECTAL ONE (13:30)
--- NOTE | 2020-05-14 02:12 | DISCH ---
FINAL DIAGNOSES: 1. Nondisplaced fracture of the left sacral wing. 2. Constipation. 3. Severe left hip pain and lower back pain secondary to nondisplaced fracture of the left sacral wing. BRIEF HISTORY OF PRESENT ILLNESS: The patient is a 59-year-old female with no significant past medical history who was admitted because of severe left hip pain and lower back pain after a fall and CAT scan of the pelvis revealed comminuted nondisplaced fracture of the left sacral wing. As per emergency room provider, orthopedic surgeon at [facility] was consulted and indicated the patient is not a surgical candidate and recommended pain management and PT and OT. The patient was admitted to medical-surgical floor for pain management and PT and OT were consulted, and the patient was given morphine for pain management as well as baclofen as muscle relaxant, and she was also placed on heparin for DVT prophylaxis. The patient did well and the pain was controlled by current oral pain medication. Hospital course was complicated by constipation and the patient was given milk of magnesia as well as fleets enema_ she had a bowel movement, and the rest of the hospital course was unremarkable. She was subsequently discharged. Condition on discharge, improved. She is going to follow up with Drea Das in 1 week for a recheck. MEDICATIONS ON DISCHARGE: MS Contin 15 mg q.12 hours scheduled and morphine sulfate 15 mg q.6 hours p.r.n. She will be continued on her milk of magnesia as well as her docusate. [facility] /[id number] MTDD
== END 2020-05-13 18:30 | disposition home or self-care (01) | DRG 552 ==
LOC: DL.ED 14:21 → DL.MS 16:57 → OBSVTOIN 05-11 11:34
PROVIDERS: ADMIT Student in an Organized Health Care Education/Training Program; ATTEND Internal Medicine
DX: S32.10XA Unspecified fracture of sacrum, initial encounter for closed fracture (principal); K59.00 Constipation, unspecified; Z20.828 Contact with and (suspected) exposure to other viral communicable diseases; Z28.82 Immunization not carried out because of caregiver refusal; V80.010A Animal-rider injured by fall from or being thrown from horse in noncollision accident, initial encounter
CPT/HCPCS: 36415; 72131; 72170; 80048; 83735; 84100; 85025; 96372; 96374; 96375; 96376; 97116-GP; 97162-GP; 97166-GO; 97530-GO; 99285-25; A9270-GY; G0378; J1644; J2270; J2405; J2765; J3010; J7030; U0002